=== PATIENT | male | born 1950 | race Native Hawaiian/Other Pacific Islander ===

== ENCOUNTER 2016-11-13 10:30 | Outpatient (CLI) | payer BC ==
[~2016-11-13 10:30] MED LIST: ASA LO-DOSE81 MG OR
[2016-11-13 10:58] LABS: PLATELET COUNT 240 K/uL (142-355)
[2016-11-13 11:28] LABS: POTASSIUM 4.2 mmol/L (3.6-5.2)
== END 2016-11-13 19:49 | disposition home or self-care (01) ==
LOC: LABW 10:30
PROVIDERS: Internal Medicine
DX: Z00.00 Encounter for general adult medical examination without abnormal findings (principal); Z12.2 Encounter for screening for malignant neoplasm of respiratory organs; Z12.5 Encounter for screening for malignant neoplasm of prostate; E78.00 Pure hypercholesterolemia, unspecified
CPT/HCPCS: 36415; 80053; 80061; 81000; 84153; 84443; 85027

== ENCOUNTER 2017-02-03 08:39 | Outpatient (CLI) | payer OTHER, BC | END 2017-02-03 19:05 | disposition home or self-care (01) | LOC: US 08:39 | DX: Z13.6 Encounter for screening for cardiovascular disorders (principal) ==

== ENCOUNTER 2018-03-20 09:01 | Outpatient (CLI) | payer OTHER, BC ==
[2018-03-20 09:32] LABS: PLATELET COUNT 231 K/uL (142-355)
[2018-03-20 09:55] LABS: POTASSIUM 4.7 mmol/L (3.6-5.2)
== END 2018-03-20 19:07 | disposition home or self-care (01) ==
LOC: LABW 09:01
PROVIDERS: Internal Medicine
DX: Z00.00 Encounter for general adult medical examination without abnormal findings (principal); E78.00 Pure hypercholesterolemia, unspecified; Z12.5 Encounter for screening for malignant neoplasm of prostate; Z79.899 Other long term (current) drug therapy
CPT/HCPCS: 36415; 80053; 80061; 81000; 83036; 84153; 84439; 85027

== ENCOUNTER 2019-12-07 08:16 | Outpatient (CLI) | payer OTHER, BC ==
[2019-12-07 09:11] LABS: POTASSIUM 4.4 mmol/L (3.6-5.2)
[2019-12-07 10:01] LABS: PLATELET COUNT 253 K/uL (142-355)
== END 2019-12-07 22:55 | disposition home or self-care (01) ==
LOC: LABW 08:16
PROVIDERS: Internal Medicine
DX: G25.0 Essential tremor (principal); E80.6 Other disorders of bilirubin metabolism; Z79.899 Other long term (current) drug therapy; N40.0 Benign prostatic hyperplasia without lower urinary tract symptoms
CPT/HCPCS: 36415; 80053; 80061; 81000; 84153; 84439; 84443; 85027

== ENCOUNTER 2022-02-18 11:02 | Outpatient (CLI) | payer BC | END 2022-02-18 18:52 | disposition home or self-care (01) | LOC: CT 11:02 | PROVIDERS: ATTEND Internal Medicine | DX: J32.1 Chronic frontal sinusitis (principal) ==

== ENCOUNTER 2022-04-23 07:32 | Outpatient (CLI) | payer BC ==
[2022-04-23 07:52] LABS: PLATELET COUNT 269 K/uL (142-355)
[2022-04-23 08:15] LABS: POTASSIUM 4.1 mmol/L (3.6-5.2)
== END 2022-04-23 19:02 | disposition home or self-care (01) ==
LOC: LABW 07:32
PROVIDERS: ATTEND Internal Medicine
DX: G25.0 Essential tremor (principal); Z79.899 Other long term (current) drug therapy
CPT/HCPCS: 36415; 80053; 80061; 81002; 84439; 84443; 85027

== ENCOUNTER 2023-01-26 08:14 | Outpatient (CLI) | payer BC ==
[2023-01-26 08:36] LABS: PLATELET COUNT 264 K/uL (142-355)
[2023-01-26 08:49] LABS: POTASSIUM 4.4 mmol/L (3.6-5.2)
== END 2023-01-26 18:49 | disposition home or self-care (01) ==
LOC: LABW 08:14
PROVIDERS: ATTEND Internal Medicine
DX: G47.33 Obstructive sleep apnea (adult) (pediatric) (principal); E78.00 Pure hypercholesterolemia, unspecified; G25.2 Other specified forms of tremor
CPT/HCPCS: 36415; 80053; 80061; 84439; 84443; 85027